=== PATIENT | female | born 1940 | race Caucasian/White ===

== ENCOUNTER 2019-01-13 10:19 | Inpatient (IN) | payer MEDICARE, BC ==
[~2019-01-13] VITALS: Ht 149.9 cm; Wt 84.9 kg
[2019-01-13] VITALS (10 sets, daily range): BP systolic 103–145; BP diastolic 58–86
--- NOTE | 2019-01-13 11:52 | EKG ---
[address] [address] Test Date: 2019-01-13 Test Time: 10:25:55 Pat Name: ANTONIO QUINTANILLA Department: Room: Gender: F [employer]ic Apprentice: KATALINA : 1940 Requested By: EDILBERTOJ Order Number: [id number] Reading MD: Wilberto Cooper Measurements Intervals [place] Rate: 157 P: [place]: QRS: 92 QRSD: 82 T: 66 QT: 288 QTc: 472 Interpretive Statements ATRIAL FIBRILLATION. RIGHTWARD AXIS Electronically Signed On 01-15-2019 9:52:59 CDT by Wilberto Cooper
[2019-01-13 12:07] LABS: ALBUMIN 3.3 g/dL (3.4-5.0); TOTAL PROTEIN 7.3 g/dL (6.4-8.2)
[2019-01-13 12:08] LABS: ALBUMIN/GLOBULIN RATIO 0.8 (1.0-1.7); CALCIUM 8.5 mg/dL (8.5-10.1); GFR 53.5; MAGNESIUM 1.8 mg/dL (1.8-2.4); POTASSIUM 4.2 mmol/L (3.5-5.1); TOTAL BILIRUBIN 1.5 mg/dL (0.2-1.0)
[2019-01-13 12:13] LABS: BASO # 0.1 x10^3/uL (0.0-0.2); BASO % 1 % (0-3); EOS % 0 % (0-3); HEMATOCRIT 43.9 % (36.0-47.0); HEMOGLOBIN 14.3 g/dL (12.0-15.5); LYMPH % 9 % (24-48); MEAN CORPUSCULAR HEMOGLOBIN 28 pg (25-35); MEAN CORPUSCULAR HGB CONC 33 g/dL (31-37); MEAN CORPUSCULAR VOLUME 85 fL (79-100); MONO # 0.8 x10^3/uL (0.0-1.1); MONO % 8 % (0-9); NEUT # 8.4 x10^3uL (1.8-7.7); NEUT % 82 % (31-73); PLATELET COUNT 172 x10^3/uL (140-400); RED BLOOD COUNT 5.15 x10^6/uL (3.50-5.40); RED CELL DISTRIBUTION WIDTH 15.1 % (11.5-14.5); WHITE BLOOD COUNT 10.3 x10^3/uL (4.0-11.0)
--- NOTE | 2019-01-13 12:40 | PHYS DOC ---
Adult General Chief Complaint Chief Complaint: RAPID HEART RATE HPI HPI Patient is a 78-year-old female who presents with complaint of shortness of breath and palpitations that she states is been present for the last 2-3 weeks. She states that she has been having a little bit of chest tightness but no ac tual pain. He denies any fever. Patient states the shortness of breath is worsened with exertion. She also indicates that she has been noticing swelling in her lower legs that is worse than usual. Patient states that nothing is improving her symptoms. Review of Systems Review of Systems Constitutional: Denies fever or chills [] Respiratory: Positive coughing and shortness of breath [] Cardiovascular: No additional information not addressed in HPI [] GI: Denies abdominal pain, nausea, vomiting or diarrhea [] Integument: Denies rash or skin lesions [] Neurologic: Denies headache, focal weakness or sensory changes [] All other systems were reviewed and found to be within normal limits, except as documented in this note. Current Medications Current Medications Current Medications Medications (Trade) Dose Ordered Sig/Sarah Start Time Stop Time Status Last Admin Dose Admin Digoxin (Lanoxin) 500 mcg 1X ONCE 01/13/19 12:30 01/13/19 12:31 UNV Furosemide (Lasix) 60 mg 1X ONCE 01/13/19 12:30 01/13/19 12:31 UNV Physical Exam Physical Exam Constitutional: Well developed, well nourished, no acute distress, non-toxic appearance. [] HENT: Normocephalic, atraumatic, bilateral external ears normal, oropharynx m oist, no oral exudates, nose normal. [] Eyes: PERRLA, EOMI, conjunctiva normal, no discharge. [] Neck: Normal range of motion, no tenderness, supple, no stridor. [] Cardiovascular: Markedly tachycardic rate with irregular rhythm[] Lungs & Thorax: There are rales in the lung bases bilaterally to auscultation [] Abdomen: Bowel sounds normal, soft, no tenderness. [] Skin: Warm, dry, no erythema, no rash. [] Extremities: No tenderness, no cyanosis, no clubbing, ROM intact, with 3+ pitting edema. [] Neurologic: Alert and oriented X 3, no focal deficits noted. [] Current Patient Data Lab Results Laboratory Tests Test 01/13/19 11:50 White Blood Count 10.3 x10^3/uL (4.0-11.0) Red Blood Count 5.15 x10^6/uL (3.50-5.40) Hemoglobin 14.3 g/dL (12.0-15.5) Hematocrit 43.9 % (36.0-47.0) Mean Corpuscular Volume 85 fL (79-100) Mean Corpuscular Hemoglobin 28 pg (25-35) Mean Corpuscular Hemoglobin Concent 33 g/dL (31-37) Red Cell Distribution Width 15.1 % (11.5-14.5) H Platelet Count 172 x10^3/uL (140-400) Neutrophils (%) (Auto) 82 % (31-73) H Lymphocytes (%) (Auto) 9 % (24-48) L Monocytes (%) (Auto) 8 % (0-9) Eosinophils (%) (Auto) 0 % (0-3) Basophils (%) (Auto) 1 % (0-3) Neutrophils # (Auto) 8.4 x10^3uL (1.8-7.7) H Lymphocytes # (Auto) 1.0 x10^3/uL (1.0-4.8) Monocytes # (Auto) 0.8 x10^3/uL (0.0-1.1) Eosinophils # (Auto) 0.0 x10^3/uL (0.0-0.7) Basophils # (Auto) 0.1 x10^3/uL (0.0-0.2) Sodium Level 136 mmol/L (136-145) Potassium Level 4.2 mmol/L (3.5-5.1) Chloride Level 101 mmol/L (98-107) Carbon Dioxide Level 26 mmol/L (21-32) Anion Gap 9 (6-14) Blood Urea Nitrogen 17 mg/dL (7-20) Creatinine 1.0 mg/dL (0.6-1.0) Estimated GFR (Cockcroft-Gault) 53.5 BUN/Creatinine Ratio 17 (6-20) Glucose Level 116 mg/dL (70-99) H Calcium Level 8.5 mg/dL (8.5-10.1) Magnesium Level 1.8 mg/dL (1.8-2.4) Total Bilirubin 1.5 mg/dL (0.2-1.0) H Aspartate Amino Transferase (AST) 44 U/L (15-37) H Alanine Aminotransferase (ALT) 59 U/L (14-59) Alkaline Phosphatase 117 U/L (46-116) H Troponin I Quantitative < 0.017 ng/mL (0-0.055) JF-Zvf-K-Type Natriuretic Peptide 4017 pg/mL (0-449) H Total Protein 7.3 g/dL (6.4-8.2) Albumin 3.3 g/dL (3.4-5.0) L Albumin/Globulin Ratio 0.8 (1.0-1.7) L EKG EKG EKG demonstrates atrial fibrillation with rapid ventricular response and rate of 157.[] Radiology/Procedures Radiology/Procedures [] Impressions: Chest x-ray demonstrates fluid overload consistent with CHF. Course & Med Decision Making Course & Med Decision Making Pertinent Labs and Imaging studies reviewed. (See chart for details) [] Dragon Disclaimer Dragon Disclaimer This electronic medical record was generated, in whole or in part, using a voice recognition dictation system. Departure Departure: Impression: Primary Impression: Atrial fibrillation with RVR Additional Impression: CHF (congestive heart failure) Disposition: 09 ADMITTED INPATIENT Admitting Physician: Shad Stark Condition: IMPROVED Referrals: SHAD STARK MD (PCP) Problem Qualifiers Additional Impression: CHF (congestive heart failure) Heart failure type: unspecified Heart failure chronicity: unspecified Qualified Codes: I50.9 - Heart failure, unspecified MARCI CASTRO Jr. DO January 13, 2019 12:40
[2019-01-13] MEDS ORDERED: DIGOXIN IV 500 MCG/2 ML AMPUL. IV ONE (13:00)
[2019-01-13] MEDS ORDERED: FUROSEMIDE 40 MG/4 ML VIAL IVP ONE (13:00)
--- NOTE | 2019-01-13 13:53 | RAD ---
EXAM: CHEST 1 VIEW History: Dyspnea COMPARISON: None available. TECHNIQUE: Single portable radiograph of the chest FINDINGS: Low lung volumes and technique accentuates heart size and pulmonary vascularity. Mild cardiomegaly. There is mild prominent appearing bilateral interstitial lung markings. IMPRESSION: Mild prominent bilateral interstitial lung markings could be mild diffuse interstitial infiltrates or edema. Electronically signed by: Ariel Bustillo MD (01/13/2019 1:50 PM) [id number]
[2019-01-13] MEDS ORDERED: ACETAMINOPHEN 325 MG TABLET PO PRN (14:45)
[2019-01-13] MEDS ORDERED: ONDANSETRON PF 4 MG/2 ML VIAL. IV PRN (14:45)
[2019-01-13] MEDS ORDERED: AREDS 2 PO (14:46)
[2019-01-13] MEDS ORDERED: GUAI600T47 PO (14:46)
[2019-01-13] MEDS ORDERED: ASPI-630 PO (14:46)
[2019-01-13] MEDS ORDERED: POTASSIUM CHLORIDE 20 MEQ TABLET.ER. PO ONE (16:15)
[2019-01-13] MEDS: METOPROLOL TART IMMED RELEASE 25 MG TABLET PO SCH ×3 (16:38→23:59)
[2019-01-13] MEDS: dilTIAZem VIAL 125 MG in IV DEXTROSE 5% 100 ML IV PRN (18:34)
[2019-01-13] MEDS: RIVAROXABAN 10 MG TABLET. PO SCH (18:35)
--- NOTE | 2019-01-13 18:57 | NUR ---
PT admitted to ICU bed 5 pt is able to verbalize understanding of admission to unit. PT on cardizem gtt on arrival see down time charting. Luli DEY
[2019-01-14] VITALS (17 sets, daily range): BP systolic 93–124; BP diastolic 43–88
[2019-01-14] MEDS: dilTIAZem VIAL 125 MG in IV DEXTROSE 5% 100 ML IV PRN (03:31)
[2019-01-14] MEDS: METOPROLOL TART IMMED RELEASE 25 MG TABLET PO SCH ×4 (05:48→23:12)
[2019-01-14 06:27] LABS: BASO # 0.1 x10^3/uL (0.0-0.2); BASO % 1 % (0-3); EOS # 0.1 x10^3/uL (0.0-0.7); EOS % 2 % (0-3); HEMATOCRIT 40.4 % (36.0-47.0); HEMOGLOBIN 13.2 g/dL (12.0-15.5); LYMPH % 14 % (24-48); MEAN CORPUSCULAR HEMOGLOBIN 28 pg (25-35); MEAN CORPUSCULAR HGB CONC 33 g/dL (31-37); MEAN CORPUSCULAR VOLUME 84 fL (79-100); MONO # 0.8 x10^3/uL (0.0-1.1); MONO % 10 % (0-9); NEUT # 5.4 x10^3uL (1.8-7.7); NEUT % 74 % (31-73); PLATELET COUNT 167 x10^3/uL (140-400); RED BLOOD COUNT 4.79 x10^6/uL (3.50-5.40); RED CELL DISTRIBUTION WIDTH 14.9 % (11.5-14.5); WHITE BLOOD COUNT 7.3 x10^3/uL (4.0-11.0)
[2019-01-14 06:30] LABS: CALCIUM 8.5 mg/dL (8.5-10.1); CREATININE 0.8 mg/dL (0.6-1.0); GFR 69.2
[2019-01-14] MEDS: ASPIRIN 81 MG TAB.CHEW PO SCH (09:00)
[2019-01-14] MEDS ORDERED: guaiFENesin/PS-EPHED 600/60MG 1 TAB TAB.ER.12H PO SCH (09:00)
[2019-01-14] MEDS: FUROSEMIDE 40 MG TABLET PO SCH (10:00)
[2019-01-14] MEDS ORDERED: FUROSEMIDE 40 MG/4 ML VIAL IVP ONE (11:15)
[2019-01-14] MEDS: MULTIVITAMIN I-VITE TABLET. PO SCH ×2 (12:51→23:11)
--- NOTE | 2019-01-14 13:09 | PDOC2 ---
CONSULT Date of Admission DATE: 01/14/19 TIME: 12:59 Reason for Consult: atrial fibrillation with RVR Problem List Problems Medical Problems: (1) Atrial fibrillation with RVR Status: Acute (2) CHF (congestive heart failure) Status: Acute History of Present Illness Ms Woodward is a 78 year old female who presented to her PCP office yesterday with complaints of post nasal drip, cough with clear sputum and shortness of breath on exertion. She reports symptoms ongoing for about 1 week. EKG at PCP office revealed atrial fibrillation with RVR so she was sent to ED for eval and admission. She denies any palpitations or sense of irregular heart beat. She denies chest discomfort. She reports shortness of breath with exertion for about 1 week. She reports evening fatigue and falling asleep in the chair which has been occurring for several years. She denies any decrease in her functional capacity. She denies lightheadedness or syncope. She does report waking at night with post nasal drip causing her to cough. She also reports some increased swelling in her feet and legs in the last several weeks. She denies other symptoms. Past Medical History childhood asthma, pneumonia, uterine fibroids requiring a hysterectomy, hammer toes Past Surgical History: Breast Biopsy, Hysterectomy, Other Family History non contributory Social History non smoker, no illicit drugs, social ETOH consumption rarely Current Medications Current Medications Furosemide (Lasix) 60 mg 1X ONCE IVP Last administered on 01/13/19at 13:14; Start 01/13/19 at 13:00; Stop 01/13/19 at 13:01; Status DC Digoxin (Lanoxin) 500 mcg 1X ONCE IV Last administered on 01/13/19at 13:14; Start 01/13/19 at 13:00; Stop 01/13/19 at 13:01; Status DC Acetaminophen (Tylenol) 650 mg PRN Q6HRS PRN PO Headaches, Temp > 101.5F; Start 01/13/19 at 14:45 Ondansetron HCl (Zofran) 4 mg PRN Q8HRS PRN IV NAUSEA/VOMITING; Start 01/13/19 at 14:45 Diltiazem HCl 125 mg/Dextrose 125 ml @ 5 mls/hr CONT PRN IV SEE I/O RECORD Last administered on 01/14/19at 03:31; Start 01/13/19 at 14:45; Stop 01/14/19 at 12:22; Status DC Metoprolol Tartrate (Lopressor) 25 mg Q6HRS PO Last administered on 01/14/19at 05:48; Start 01/13/19 at 14:45 Potassium Chloride (Klor-Con) 40 meq 1X ONCE PO Last administered on 01/13/19at 16:39; Start 01/13/19 at 16:15; Stop 01/13/19 at 16:16; Status DC Rivaroxaban (Xarelto) 20 mg DAILYWSUP PO Last administered on 01/13/19at 18:35; Start 01/13/19 at 18:30 Guaifenesin (Mucinex D Er 600-60 Mg) 1 tab BID PO ; Start 01/14/19 at 09:00; Stop 01/14/19 at 09:00; Status DC Guaifenesin (Mucinex Er) 600 mg BID PO Last administered on 01/14/19at 12:51; Start 01/14/19 at 09:00 Guaifenesin (Mucinex Er) 600 mg BID PO ; Start 01/14/19 at 09:00; Status UNV Aspirin (Children'S Aspirin) 81 mg DAILYWBKFT PO ; Start 01/14/19 at 09:00 Multivitamins/ Minerals (I-Horacio) 1 tab BID PO Last administered on 01/14/19at 12:51; Start 01/14/19 at 09:00 Furosemide (Lasix) 40 mg DAILY PO ; Start 01/14/19 at 10:00 Diltiazem HCl (Cardizem 24hr Cd) 360 mg DAILY PO ; Start 01/15/19 at 09:00; Stop 01/15/19 at 09:00; Status DC Furosemide (Lasix) 40 mg 1X ONCE IVP ; Start 01/14/19 at 11:15; Stop 01/14/19 at 11:19; Status DC Diltiazem HCl (Cardizem 24hr Cd) 360 mg DAILY PO ; Start 01/14/19 at 12:30; Stop 01/14/19 at 12:38; Status DC Diltiazem HCl (Cardizem 24hr Cd) 120 mg DAILY PO ; Start 01/15/19 at 09:00; Stop 01/15/19 at 09:00; Status DC Diltiazem HCl (Cardizem 24hr Cd) 120 mg STK-MED ONCE PO ; Start 01/14/19 at 12:50; Stop 01/14/19 at 12:51; Status DC Diltiazem HCl (Cardizem 24hr Cd) 120 mg DAILY PO ; Start 01/14/19 at 13:00 Active Scripts Active Reported Mucinex (Guaifenesin) 600 Mg Tablet.er 1 Tab PO BID [Areds 2] 1 Tab PO BID Aspirin 81 Mg Tab.chew 81 Mg PO DAILY Allergies: Coded Allergies: No Known Drug Allergies (Unverified , 01/13/19) Review of System as per HPI or negative General: Alert, Oriented X3, Cooperative, No acute distress HEENT: Atraumatic, EOMI Lungs: Other (decreased bases with few crackles) Heart: Other (Irregular rate and rhythm, no gallops, clicks or rubs, no obvious murmurs) Abdomen: Normal bowel sounds, Soft, No tenderness Extremities: No cyanosis, Other (2-3+ pretibial edema) Neuro: Normal speech, Strength at / X4 ext Psych/Mental Status: Mental status NL, Mood NL VITALS Vital Signs Date Time Temp Pulse Resp B/P (MAP) Pulse Ox O2 Delivery O2 Flow Rate FiO2 01/14/19 11:06 97.7 95 24 93/43 (60) 93 Nasal Cannula 2.0 Labs Laboratory Tests Test 01/13/19 11:50 01/14/19 05:31 White Blood Count 10.3 x10^3/uL (4.0-11.0) 7.3 x10^3/uL (4.0-11.0) Red Blood Count 5.15 x10^6/uL (3.50-5.40) 4.79 x10^6/uL (3.50-5.40) Hemoglobin 14.3 g/dL (12.0-15.5) 13.2 g/dL (12.0-15.5) Hematocrit 43.9 % (36.0-47.0) 40.4 % (36.0-47.0) Mean Corpuscular Volume 85 fL (79-100) 84 fL (79-100) Mean Corpuscular Hemoglobin 28 pg (25-35) 28 pg (25-35) Mean Corpuscular Hemoglobin Concent 33 g/dL (31-37) 33 g/dL (31-37) Red Cell Distribution Width 15.1 % (11.5-14.5) 14.9 % (11.5-14.5) Platelet Count 172 x10^3/uL (140-400) 167 x10^3/uL (140-400) Neutrophils (%) (Auto) 82 % (31-73) 74 % (31-73) Lymphocytes (%) (Auto) 9 % (24-48) 14 % (24-48) Monocytes (%) (Auto) 8 % (0-9) 10 % (0-9) Eosinophils (%) (Auto) 0 % (0-3) 2 % (0-3) Basophils (%) (Auto) 1 % (0-3) 1 % (0-3) Neutrophils # (Auto) 8.4 x10^3uL (1.8-7.7) 5.4 x10^3uL (1.8-7.7) Lymphocytes # (Auto) 1.0 x10^3/uL (1.0-4.8) 1.0 x10^3/uL (1.0-4.8) Monocytes # (Auto) 0.8 x10^3/uL (0.0-1.1) 0.8 x10^3/uL (0.0-1.1) Eosinophils # (Auto) 0.0 x10^3/uL (0.0-0.7) 0.1 x10^3/uL (0.0-0.7) Basophils # (Auto) 0.1 x10^3/uL (0.0-0.2) 0.1 x10^3/uL (0.0-0.2) Sodium Level 136 mmol/L (136-145) 138 mmol/L (136-145) Potassium Level 4.2 mmol/L (3.5-5.1) 5.0 mmol/L (3.5-5.1) Chloride Level 101 mmol/L (98-107) 103 mmol/L (98-107) Carbon Dioxide Level 26 mmol/L (21-32) 26 mmol/L (21-32) Anion Gap 9 (6-14) 9 (6-14) Blood Urea Nitrogen 17 mg/dL (7-20) 13 mg/dL (7-20) Creatinine 1.0 mg/dL (0.6-1.0) 0.8 mg/dL (0.6-1.0) Estimated GFR (Cockcroft-Gault) 53.5 69.2 BUN/Creatinine Ratio 17 (6-20) Glucose Level 116 mg/dL (70-99) 94 mg/dL (70-99) Calcium Level 8.5 mg/dL (8.5-10.1) 8.5 mg/dL (8.5-10.1) Magnesium Level 1.8 mg/dL (1.8-2.4) 1.9 mg/dL (1.8-2.4) Total Bilirubin 1.5 mg/dL (0.2-1.0) Aspartate Amino Transf (AST/SGOT) 44 U/L (15-37) Alanine Aminotransferase (ALT/SGPT) 59 U/L (14-59) Alkaline Phosphatase 117 U/L (46-116) Troponin I Quantitative < 0.017 ng/mL (0-0.055) EW-Wef-L-Type Natriuretic Peptide 4017 pg/mL (0-449) Total Protein 7.3 g/dL (6.4-8.2) Albumin 3.3 g/dL (3.4-5.0) Albumin/Globulin Ratio 0.8 (1.0-1.7) Images CXR - IMPRESSION: Mild prominent bilateral interstitial lung markings could be mild diffuse interstitial infiltrates or edema. Assessment/Plan 1. atrial fibrillation with RVR - rate control improved on 15mg cardizem drip, q6hr metoprolol and after 500mcg digoxin. Plan to transition to oral cardizem. On Xarelto for stroke prophylaxis. [id number]=3. check echo. plan for outpatient MCT for af burden and 4 week follow up in office. 2. mild, likely diastolic, heart failure - control af rate, diurese gently. check echo. 3. history of hyperkalemia - mildly elevated today. no supplements. avoid acei/arb. JERSON ROCK APRN January 14, 2019 13:09
--- NOTE | 2019-01-14 14:25 | CARD ---
MR#: [id number] Date of Study: 01/14/2019 Ordering Physician: CANDIDA GUZMAN, Referring Physician: CANDIDA GUZMAN, Tech: Denisha Llamas RDCS APPROVED REPORT EXAM: Two-dimensional and M-mode echocardiogram with Doppler and color Doppler. Other Information Quality : AverageHR: 112bpm Rhythm : Atrial FibrillationTechnically limited study due to heart rate. INDICATION Atrial Fibrillation 2D DIMENSIONS RVDd4.0 (2.9-3.5cm)Left Atrium(2D)4.1 (1.6-4.0cm) IVSd1.1 (0.7-1.1cm)Aortic Root(2D)3.3 (2.0-3.7cm) LVDd4.0 (3.9-5.9cm)LVOT Diameter1.7 (1.8-2.4cm) PWd0.9 (0.7-1.1cm)LVDs2.9 (2.5-4.0cm) FS (%) 26.6 %SV36.3 ml LVEF(%)52.7 (>50%) M-Mode DIMENSIONS Left Atrium(MM)4.05 (2.5-4.0cm)Aortic Root2.47 (2.2-3.7cm) Aortic Valve AoV Peak Júnior.161.0cm/sAoV VTI29.5cm AO Peak GR.10.4mmHgLVOT Peak Júnior.85.0cm/s LVOT VTI 17.74cmAO Mean GR.6mmHg MARJORIE (VTI)2.00cm2 Mitral Valve MV E Awprenlb275.9cm/sMV DECEL [id number] MV A Yculaycr53.2cm/sE/A Ratio4.2 Pulmonary Valve PV Peak Xibkhqtn83.9cm/sPV Peak Grad.2mmHg Tricuspid Valve TR P. Knycdbkj663jb/sRAP EULMXEZS57ctVp TR Peak Gr.40siBePSQC38fzCz LEFT VENTRICLE The left ventricle is normal size. Proximal septal thickening is noted. Left ventricle systolic funct ion is normal. The Ejection Fraction is 50-55%. There is normal LV segmental wall motion. RIGHT VENTRICLE The right ventricle is mildly dilated. There is normal right ventricular wall thickness. The right ve ntricular systolic function is normal. ATRIA The left atrium is mildly dilated. The right atrium is mildly dilated. The interatrial septum is inta ct with no evidence for an atrial septal defect or patent foramen ovale as noted on 2-D or Doppler im aging. AORTIC VALVE The aortic valve is normal in structure and function. The aortic valve is trileaflet. Doppler and Col or Flow revealed no significant aortic regurgitation. There is no significant aortic valvular stenosi s. There is no aortic valvular vegetation. MITRAL VALVE The mitral valve is thickened but opens well. There is no evidence of mitral valve prolapse. There is no mitral valve stenosis. Doppler and Color-flow revealed moderate mitral regurgitation. TRICUSPID VALVE The tricuspid valve is normal in structure and function. Doppler and Color Flow revealed moderate tri cuspid regurgitation. There is moderate pulmonary hypertension. The PA pressure was estimated at 49 m mHg. There is no tricuspid valve prolapse or vegetation. There is no tricuspid valve stenosis. PULMONIC VALVE The pulmonic valve is not well visualized. GREAT VESSELS The aortic root is normal in size. The ascending aorta is normal in size. The IVC is dilated. PERICARDIAL EFFUSION There is no evidence of significant pericardial effusion. Critical Notification Critical Value: No <Conclusion> Left ventricle systolic function is normal. The Ejection Fraction is 50-55%. Moderate mitral regurgitation. Moderate tricuspid regurgitation. The PA pressure was estimated at 49 mmHg. There is no evidence of significant pericardial effusion. Signed by : Adelso Cordova, Electronically Approved : 01/14/2019 14:24:37
[2019-01-14] MEDS: RIVAROXABAN 10 MG TABLET. PO SCH (16:54)
--- NOTE | 2019-01-14 18:30 | NUR ---
Pt was still on 15mg of cardizem gtt this am and had been on 15mg all night. PT bp was hypotensive in 90s and unable to tolerate am meds. Cardiology wanted patient to have po cardizem 360 and IV lasix. Titrated gtt back to 5mg and bp was up to 100's, cardiology decided to go with 120mg of po cardizem. Turned gtt off 1 hour after po cardizem given. By afternoon patient bp was able to tolerate IV lasix. PT only had 400cc out from 6am- 2pm prior to IV lasix. By 1700 patient was also able to tolerate po metoprolol dose. PT HR now controlled at 80's and Bp 116/54. Pt feeling ok, still SOB with exertion. Luli DEY
[2019-01-15] VITALS (14 sets, daily range): BP systolic 103–138; BP diastolic 61–95
--- NOTE | 2019-01-15 02:36 | PN ---
DATE: 01/13/2019 SUBJECTIVE: The patient was admitted yesterday for atrial fibrillation with rapid ventricular response. Cardiology is adjusting her medications. She feels fine this morning and no complications. No chest pain, no shortness of breath. OBJECTIVE: VITAL SIGNS: The patient's blood pressure 102/60; respiratory rate 16; pulse 80-90, in atrial fib, the patient has got converted; afebrile. GENERAL: The patient is alert and oriented, pleasant female in no apparent distress. LUNGS: Diminished with rales noted in the bases. CARDIOVASCULAR: Regular rate and rhythm. ABDOMEN: Soft, nontender. EXTREMITIES: With +1 to 2 pitting edema. The patient's BNP was 4000. Questions were answered and the patient will continue to be diuresed gradually and monitoring her blood pressure along with her beta blockers to control her heart rate. Echocardiogram ordered as well as lipid profiles and we will continue to monitor the patient. She continues on a Cardizem drip to keep the heart rate under control and we will monitor accordingly. IMPRESSION: Therefore of atrial fibrillation with rapid ventricular response, acute on top of chronic diastolic heart failure. PLAN: Continue with diuresis and control of rate on the atrial fibrillation, get echo report. CANDIDA GUZMAN MD DR: NIA/altagracia JOB#: [id number] / [id number]
[2019-01-15] MEDS: METOPROLOL TART IMMED RELEASE 25 MG TABLET PO SCH (05:33)
[2019-01-15 06:19] LABS: BASO % 1 % (0-3); EOS # 0.2 x10^3/uL (0.0-0.7); EOS % 3 % (0-3); HEMATOCRIT 41.9 % (36.0-47.0); HEMOGLOBIN 13.7 g/dL (12.0-15.5); LYMPH # 1.2 x10^3/uL (1.0-4.8); LYMPH % 17 % (24-48); MEAN CORPUSCULAR HEMOGLOBIN 28 pg (25-35); MEAN CORPUSCULAR HGB CONC 33 g/dL (31-37); MEAN CORPUSCULAR VOLUME 85 fL (79-100); MONO # 0.7 x10^3/uL (0.0-1.1); MONO % 9 % (0-9); NEUT % 70 % (31-73); PLATELET COUNT 171 x10^3/uL (140-400); RED BLOOD COUNT 4.96 x10^6/uL (3.50-5.40); RED CELL DISTRIBUTION WIDTH 14.8 % (11.5-14.5); WHITE BLOOD COUNT 7.2 x10^3/uL (4.0-11.0)
[2019-01-15 06:33] LABS: ALBUMIN 2.8 g/dL (3.4-5.0); ALBUMIN/GLOBULIN RATIO 0.8 (1.0-1.7); CALCIUM 8.5 mg/dL (8.5-10.1); CREATININE 0.8 mg/dL (0.6-1.0); GFR 69.2; POTASSIUM 4.5 mmol/L (3.5-5.1); TOTAL BILIRUBIN 1.1 mg/dL (0.2-1.0); TOTAL PROTEIN 6.5 g/dL (6.4-8.2)
[2019-01-15] MEDS: FUROSEMIDE 40 MG TABLET PO SCH (07:48)
[2019-01-15] MEDS: ASPIRIN 81 MG TAB.CHEW PO SCH (07:48)
[2019-01-15] MEDS: MULTIVITAMIN I-VITE TABLET. PO SCH ×2 (07:48→20:53)
--- NOTE | 2019-01-15 08:28 | PDOC ---
PROGRESS NOTES Diagnosis Problem Problems Medical Problems: (1) Atrial fibrillation with RVR Status: Acute (2) Atrial fibrillation with RVR Status: Acute (3) CHF (congestive heart failure) Status: Acute Assessment Problems Medical Problems: (1) Atrial fibrillation with RVR Status: Acute (2) Atrial fibrillation with RVR Status: Acute (3) CHF (congestive heart failure) Status: Acute 1. atrial fibrillation with RVR - rate control improved but remains mildly elevated. Continue cardizem, metoprolol and repeat digoxin x 1 dose. Yoana [id number] =4. Xarelto for stroke prophylaxis. MCT outpatient for AF burden and eval of rate control. 2. mild, diastolic, heart failure - good diuresis with IV lasix. change to oral pending CXR report today. Continue beta yemi. No ACEI/ARB secondary to history of hyperkalemia and borderline hypotension. 3. history of hyperkalemia - WNL today. no supplements. avoid acei/arb. 4. moderate MR/TR - continue bp control and af rate control 5. mild PHTN - recommend outpatient sleep study, refer to Dr Figueredo. 6. mild hepatic insufficiency - likely congestive, improved today. Subjective still has some mild shortness of breath. continued edema. no chest pain, no palpitations Objective Vital Signs Date Time Temp Pulse Resp B/P (MAP) Pulse Ox O2 Delivery O2 Flow Rate FiO2 01/15/19 07:54 Room Air 2.0 01/15/19 07:48 93 119/95 01/15/19 07:42 97.4 20 92 Intake and Output 01/15/19 07:00 Intake Total 1820 ml Output Total 4000 ml Balance -2180 ml Intake Oral 1720 ml IV Total 100 ml Output Urine Total 4000 ml Abdomen: Normal bowel sounds, Soft, No tenderness Heart: Other (RRR, no gallops, clicks or rubs) Extremities: No cyanosis, Other (+ edema) HEENT: Atraumatic, EOMI, Mucous membr. moist/pink Lungs: Other (few left basilar crackles, otherwise clear) Neuro: Normal speech, Strength at / X4 ext Psych/Mental Status: Mental status NL, Mood NL Review of Relevant I have reviewed the following items edelmira (where applicable) has been applied. Labs Laboratory Tests Test 01/13/19 11:50 01/13/19 15:55 01/14/19 05:31 01/15/19 05:37 White Blood Count 10.3 x10^3/uL (4.0-11.0) 7.3 x10^3/uL (4.0-11.0) 7.2 x10^3/uL (4.0-11.0) Red Blood Count 5.15 x10^6/uL (3.50-5.40) 4.79 x10^6/uL (3.50-5.40) 4.96 x10^6/uL (3.50-5.40) Hemoglobin 14.3 g/dL (12.0-15.5) 13.2 g/dL (12.0-15.5) 13.7 g/dL (12.0-15.5) Hematocrit 43.9 % (36.0-47.0) 40.4 % (36.0-47.0) 41.9 % (36.0-47.0) Mean Corpuscular Volume 85 fL (79-100) 84 fL (79-100) 85 fL (79-100) Mean Corpuscular Hemoglobin 28 pg (25-35) 28 pg (25-35) 28 pg (25-35) Mean Corpuscular Hemoglobin Concent 33 g/dL (31-37) 33 g/dL (31-37) 33 g/dL (31-37) Red Cell Distribution Width 15.1 % (11.5-14.5) 14.9 % (11.5-14.5) 14.8 % (11.5-14.5) Platelet Count 172 x10^3/uL (140-400) 167 x10^3/uL (140-400) 171 x10^3/uL (140-400) Neutrophils (%) (Auto) 82 % (31-73) 74 % (31-73) 70 % (31-73) Lymphocytes (%) (Auto) 9 % (24-48) 14 % (24-48) 17 % (24-48) Monocytes (%) (Auto) 8 % (0-9) 10 % (0-9) 9 % (0-9) Eosinophils (%) (Auto) 0 % (0-3) 2 % (0-3) 3 % (0-3) Basophils (%) (Auto) 1 % (0-3) 1 % (0-3) 1 % (0-3) Neutrophils # (Auto) 8.4 x10^3uL (1.8-7.7) 5.4 x10^3uL (1.8-7.7) 5.0 x10^3uL (1.8-7.7) Lymphocytes # (Auto) 1.0 x10^3/uL (1.0-4.8) 1.0 x10^3/uL (1.0-4.8) 1.2 x10^3/uL (1.0-4.8) Monocytes # (Auto) 0.8 x10^3/uL (0.0-1.1) 0.8 x10^3/uL (0.0-1.1) 0.7 x10^3/uL (0.0-1.1) Eosinophils # (Auto) 0.0 x10^3/uL (0.0-0.7) 0.1 x10^3/uL (0.0-0.7) 0.2 x10^3/uL (0.0-0.7) Basophils # (Auto) 0.1 x10^3/uL (0.0-0.2) 0.1 x10^3/uL (0.0-0.2) 0.0 x10^3/uL (0.0-0.2) Sodium Level 136 mmol/L (136-145) 138 mmol/L (136-145) 140 mmol/L (136-145) Potassium Level 4.2 mmol/L (3.5-5.1) 5.0 mmol/L (3.5-5.1) 4.5 mmol/L (3.5-5.1) Chloride Level 101 mmol/L (98-107) 103 mmol/L (98-107) 104 mmol/L (98-107) Carbon Dioxide Level 26 mmol/L (21-32) 26 mmol/L (21-32) 30 mmol/L (21-32) Anion Gap 9 (6-14) 9 (6-14) 6 (6-14) Blood Urea Nitrogen 17 mg/dL (7-20) 13 mg/dL (7-20) 12 mg/dL (7-20) Creatinine 1.0 mg/dL (0.6-1.0) 0.8 mg/dL (0.6-1.0) 0.8 mg/dL (0.6-1.0) Estimated GFR (Cockcroft-Gault) 53.5 69.2 69.2 BUN/Creatinine Ratio 17 (6-20) 15 (6-20) Glucose Level 116 mg/dL (70-99) 94 mg/dL (70-99) 95 mg/dL (70-99) Calcium Level 8.5 mg/dL (8.5-10.1) 8.5 mg/dL (8.5-10.1) 8.5 mg/dL (8.5-10.1) Magnesium Level 1.8 mg/dL (1.8-2.4) 1.9 mg/dL (1.8-2.4) 2.0 mg/dL (1.8-2.4) Total Bilirubin 1.5 mg/dL (0.2-1.0) 1.1 mg/dL (0.2-1.0) Aspartate Amino Transf (AST/SGOT) 44 U/L (15-37) 34 U/L (15-37) Alanine Aminotransferase (ALT/SGPT) 59 U/L (14-59) 52 U/L (14-59) Alkaline Phosphatase 117 U/L (46-116) 97 U/L (46-116) Troponin I Quantitative < 0.017 ng/mL (0-0.055) ZC-Krp-D-Type Natriuretic Peptide 4017 pg/mL (0-449) Total Protein 7.3 g/dL (6.4-8.2) 6.5 g/dL (6.4-8.2) Albumin 3.3 g/dL (3.4-5.0) 2.8 g/dL (3.4-5.0) Albumin/Globulin Ratio 0.8 (1.0-1.7) 0.8 (1.0-1.7) Nasal Screen MRSA (PCR) Negative (Negative) Medications Current Medications Furosemide (Lasix) 60 mg 1X ONCE IVP Last administered on 01/13/19at 13:14; Start 01/13/19 at 13:00; Stop 01/13/19 at 13:01; Status DC Digoxin (Lanoxin) 500 mcg 1X ONCE IV Last administered on 01/13/19at 13:14; Start 01/13/19 at 13:00; Stop 01/13/19 at 13:01; Status DC Acetaminophen (Tylenol) 650 mg PRN Q6HRS PRN PO Headaches, Temp > 101.5F; Start 01/13/19 at 14:45 Ondansetron HCl (Zofran) 4 mg PRN Q8HRS PRN IV NAUSEA/VOMITING; Start 01/13/19 at 14:45 Diltiazem HCl 125 mg/Dextrose 125 ml @ 5 mls/hr CONT PRN IV SEE I/O RECORD Last administered on 01/14/19at 03:31; Start 01/13/19 at 14:45; Stop 01/14/19 at 12:22; Status DC Metoprolol Tartrate (Lopressor) 25 mg Q6HRS PO Last administered on 01/15/19at 05:33; Start 01/13/19 at 14:45; Stop 01/15/19 at 08:20; Status DC Potassium Chloride (Klor-Con) 40 meq 1X ONCE PO Last administered on 01/13/19at 16:39; Start 01/13/19 at 16:15; Stop 01/13/19 at 16:16; Status DC Rivaroxaban (Xarelto) 20 mg DAILYWSUP PO Last administered on 01/14/19at 16:54; Start 01/13/19 at 18:30 Guaifenesin (Mucinex D Er 600-60 Mg) 1 tab BID PO ; Start 01/14/19 at 09:00; Stop 01/14/19 at 09:00; Status DC Guaifenesin (Mucinex Er) 600 mg BID PO Last administered on 01/15/19at 07:48; Start 01/14/19 at 09:00 Guaifenesin (Mucinex Er) 600 mg BID PO ; Start 01/14/19 at 09:00; Status UNV Aspirin (Children'S Aspirin) 81 mg DAILYWBKFT PO Last administered on 01/15/19at 07:48; Start 01/14/19 at 09:00 Multivitamins/ Minerals (I-Horacio) 1 tab BID PO Last administered on 01/15/19at 07:48; Start 01/14/19 at 09:00 Furosemide (Lasix) 40 mg DAILY PO Last administered on 01/15/19at 07:48; Start 01/14/19 at 10:00 Diltiazem HCl (Cardizem 24hr Cd) 360 mg DAILY PO ; Start 01/15/19 at 09:00; Stop 01/15/19 at 09:00; Status DC Furosemide (Lasix) 40 mg 1X ONCE IVP Last administered on 01/14/19at 14:08; Start 01/14/19 at 11:15; Stop 01/14/19 at 11:19; Status DC Diltiazem HCl (Cardizem 24hr Cd) 360 mg DAILY PO ; Start 01/14/19 at 12:30; Stop 01/14/19 at 12:38; Status DC Diltiazem HCl (Cardizem 24hr Cd) 120 mg DAILY PO ; Start 01/15/19 at 09:00; Stop 01/15/19 at 09:00; Status DC Diltiazem HCl (Cardizem 24hr Cd) 120 mg STK-MED ONCE PO ; Start 01/14/19 at 12:50; Stop 01/14/19 at 12:51; Status DC Diltiazem HCl (Cardizem 24hr Cd) 120 mg DAILY PO Last administered on 01/15/19at 07:48; Start 01/14/19 at 13:00; Stop 01/15/19 at 08:20; Status DC Diltiazem HCl (Cardizem 24hr Cd) 240 mg DAILY PO ; Start 01/15/19 at 09:00 Diltiazem HCl (Cardizem 24hr Cd) 120 mg 1X ONCE PO ; Start 01/15/19 at 08:30; Stop 01/15/19 at 08:31 Metoprolol Succinate (Toprol Xl) 100 mg DAILY PO ; Start 01/15/19 at 09:00 Digoxin (Lanoxin) 250 mcg 1X ONCE IV ; Start 01/15/19 at 08:30; Stop 01/15/19 at 08:31; Status UNV Active Scripts Active Reported Mucinex (Guaifenesin) 600 Mg Tablet.er 1 Tab PO BID [Areds 2] 1 Tab PO BID Aspirin 81 Mg Tab.chew 81 Mg PO DAILY Vitals/I & O Vital Sign - Last 24 Hours 01/14/19 01/14/19 01/14/192/19 11:00 11:06 13:42 15:08 Temp 97.7 Pulse 95 94 106 Resp 24 B/P (MAP) 93/43 (60) 101/64 (76) Pulse Ox 93 O2 Delivery Nasal Cannula Nasal Cannula O2 Flow Rate 2.0 2.0 01/14/19 01/14/19 01/14/19 01/14/19 16:00 16:05 16:54 17:20 Temp 97.6 Pulse 108 80 114 Resp 22 23 B/P (MAP) 120/71 (87) 124/73 (90) O2 Delivery Nasal Cannula O2 Flow Rate 2.0 01/14/19 01/14/19 01/14/19 01/14/19 18:00 18:15 19:14 19:16 Temp 97.9 98.2 Pulse 80 105 92 Resp 20 18 B/P (MAP) 116/54 (74) 107/59 (75) Pulse Ox 93 94 O2 Delivery Room Air Room Air Room Air O2 Flow Rate 3.0 01/14/19 01/14/19 01/14/19 01/14/19 20:39 21:25 22:13 23:12 Pulse 105 93 97 97 Resp 18 18 18 B/P (MAP) 106/62 (77) 98/67 (77) 110/88 (95) 110/88 Pulse Ox 92 92 94 O2 Delivery Room Air Room Air Room Air 01/14/19 01/14/19 01/15/19 01/15/19 23:13 23:44 00:18 01:36 Temp 97.5 Pulse 103 79 96 Resp 18 18 18 B/P (MAP) 113/73 (86) 116/70 (85) 117/91 (100) Pulse Ox 90 95 95 O2 Delivery Room Air Nasal Cannula Nasal Cannula Nasal Cannula O2 Flow Rate 2.0 2.0 2.0 01/15/19 01/15/19 01/15/19 01/15/19 02:22 03:17 03:44 04:08 Pulse 90 105 79 Resp 18 20 20 B/P (MAP) 138/83 (101) Pulse Ox 96 94 94 O2 Delivery Nasal Cannula Nasal Cannula Nasal Cannula Nasal Cannula O2 Flow Rate 2.0 2.0 2.0 2.0 01/15/19 01/15/19 01/15/19 01/15/19 05:04 05:29 05:33 06:19 Temp 97.4 Pulse 96 112 112 84 Resp 20 20 20 B/P (MAP) 116/89 (98) 116/89 108/80 (89) Pulse Ox 93 95 96 O2 Delivery Nasal Cannula Nasal Cannula Nasal Cannula O2 Flow Rate 2.0 2.0 2.0 01/15/19 01/15/19 01/15/19 07:42 07:48 07:54 Temp 97.4 Pulse 93 93 Resp 20 B/P (MAP) 119/95 (103) 119/95 Pulse Ox 92 O2 Delivery Room Air Room Air O2 Flow Rate 2.0 Intake and Output 01/14/19 01/14/19 01/15/19 15:00 23:00 07:00 Intake Total 1380 ml 340 ml 100 ml Output Total 400 ml 2800 ml 800 ml Balance 980 ml -2460 ml -700 ml JERSON ROCK APRN January 15, 2019 08:28
[2019-01-15] MEDS ORDERED: DIGOXIN IV 500 MCG/2 ML AMPUL. IV ONE (08:30)
[2019-01-15] MEDS: METOPROLOL SUCC 24HR ER 50 MG TAB.ER.24H. PO SCH (08:30)
[2019-01-15] MEDS ORDERED: CETIRIZINE HCL 10 MG TABLET PO SCH (09:00)
--- NOTE | 2019-01-15 09:28 | RAD ---
Chest, 2 views, 01/15/2019: HISTORY: Shortness of breath, congestive heart failure Comparison is made to a study from 01/13/2019. The heart is mildly enlarged. There is a retrocardiac mass containing gas compatible with a small to moderate-sized hiatal hernia. The upper lung langley are clear. There are streaky bibasilar pulmonary opacities. There is blunting of the costophrenic angles bilaterally compatible with a small amount of pleural fluid. Moderate multilevel degenerative changes are present in the spine with accentuation of the normal thoracic kyphosis. IMPRESSION: 1. Mild cardiomegaly. 2. Mild streaky bibasilar atelectasis/infiltrate with small pleural effusions. 3. Hiatal hernia. Electronically signed by: Bebeto Osborne MD (01/15/2019 9:25 AM) [facility]
--- NOTE | 2019-01-15 10:00 | NUR ---
Cardiology here at this time, adjusted cardiac medications. Vitals remain stable except HR uncontrolled. Patients only complaints are tickling in throat and congestion. HR medications given and zytrec given this AM. Will continue to monitor HR and BP.
--- NOTE | 2019-01-15 14:22 | NUR ---
Patient downgraded to telemetry status, plan is to move patient to Room 113. Patient aware of transfer.
[2019-01-15] MEDS: RIVAROXABAN 10 MG TABLET. PO SCH (17:31)
--- NOTE | 2019-01-16 02:35 | PN ---
DATE: 01/13/2019 SUBJECTIVE: A 78-year-old female came in with atrial fibrillation with rapid ventricular response. She is making good progress. She has been digitalized, making fairly good progress overall. The patient's albumin is 2.8. PHYSICAL EXAMINATION: VITAL SIGNS: Otherwise, the patient's vital signs remain basically stable. Blood pressure 110/70, respirations 18, pulse 90, afebrile. GENERAL: The patient is alert and oriented, delightful female. LUNGS: Diminished, but clear. CARDIOVASCULAR: Irregularly irregular rhythm. ABDOMEN: Soft, nontender. EXTREMITIES: No clubbing, cyanosis nor edema. The patient continued to be monitored and adjusted on her medications for the atrial fib. There was some confusion whether or not she had an infiltrative process. We will do a procalcitonin to see if there is any chance or risk of infectious etiology. IMPRESSION: Therefore of atrial fibrillation with rapid ventricular response, acute diastolic heart failure, history of hyperkalemia, moderate mitral regurgitation, mild pulmonary hypertension, mild hepatic insufficiency. PLAN: Continue with Cardiology consult. Make further evaluation on her as indicated. CANDIDA GUZMAN MD DR: NIA/altagracia JOB#: [id number] / [id number]
[2019-01-16 06:27] VITALS: BP 119/63
[2019-01-16 07:51] LABS: BASO # 0.1 x10^3/uL (0.0-0.2); BASO % 1 % (0-3); EOS # 0.2 x10^3/uL (0.0-0.7); EOS % 4 % (0-3); HEMATOCRIT 41.4 % (36.0-47.0); HEMOGLOBIN 13.5 g/dL (12.0-15.5); LYMPH # 1.3 x10^3/uL (1.0-4.8); LYMPH % 20 % (24-48); MEAN CORPUSCULAR HEMOGLOBIN 28 pg (25-35); MEAN CORPUSCULAR HGB CONC 33 g/dL (31-37); MEAN CORPUSCULAR VOLUME 84 fL (79-100); MONO # 0.6 x10^3/uL (0.0-1.1); MONO % 9 % (0-9); NEUT # 4.2 x10^3uL (1.8-7.7); NEUT % 66 % (31-73); PLATELET COUNT 182 x10^3/uL (140-400); RED BLOOD COUNT 4.91 x10^6/uL (3.50-5.40); RED CELL DISTRIBUTION WIDTH 14.6 % (11.5-14.5); WHITE BLOOD COUNT 6.4 x10^3/uL (4.0-11.0)
[2019-01-16 08:02] LABS: ALBUMIN 2.6 g/dL (3.4-5.0); ALBUMIN/GLOBULIN RATIO 0.7 (1.0-1.7); CALCIUM 8.4 mg/dL (8.5-10.1); CREATININE 0.8 mg/dL (0.6-1.0); GFR 69.2; MAGNESIUM 1.8 mg/dL (1.8-2.4); POTASSIUM 5.1 mmol/L (3.5-5.1); TOTAL BILIRUBIN 0.9 mg/dL (0.2-1.0); TOTAL PROTEIN 6.1 g/dL (6.4-8.2)
[2019-01-16] MEDS ORDERED: SODIUM CHL/ALOE VERA NASAL GEL 14.1GM TUBE. NS PRN (08:45)
[2019-01-16] MEDS: FUROSEMIDE 40 MG TABLET PO SCH (08:48)
[2019-01-16] MEDS: MULTIVITAMIN I-VITE TABLET. PO SCH ×2 (08:48→19:49)
[2019-01-16] MEDS: METOPROLOL SUCC 24HR ER 50 MG TAB.ER.24H. PO SCH (08:48)
[2019-01-16] MEDS: ASPIRIN 81 MG TAB.CHEW PO SCH ×2 (08:49→08:54)
[2019-01-16] MEDS: FLUTICASONE 50MCG/NASAL SPRAY 16GM BOTTLE. NS SCH (09:00)
[2019-01-16] MEDS: CETIRIZINE HCL 10 MG TABLET PO SCH (09:00)
[2019-01-16 10:44] VITALS: BP 116/66
[2019-01-16 15:16] VITALS: BP 105/68
--- NOTE | 2019-01-16 15:55 | PDOC ---
SUBJECTIVE: Patient seen and examined The patient looks and feels better today. She has been walking in the [place]. OBJECTIVE: Problems: Problems Medical Problems: (1) Atrial fibrillation with RVR Status: Acute (2) Atrial fibrillation with RVR Status: Acute (3) CHF (congestive heart failure) Status: Acute Vital Signs: Vital Signs Date Time Temp Pulse Resp B/P (MAP) Pulse Ox O2 Delivery O2 Flow Rate FiO2 01/16/19 15:16 98.0 73 20 105/68 (80) 94 Room Air 01/16/19 07:22 2.0 I & O Intake and Output 01/16/19 07:00 Intake Total 2080 ml Output Total 2300 ml Balance -220 ml Intake Oral 2080 ml Output Urine Total 2300 ml Labs: Laboratory Tests Test 01/15/19 05:37 01/15/19 19:00 01/16/19 07:35 White Blood Count 7.2 x10^3/uL (4.0-11.0) 6.4 x10^3/uL (4.0-11.0) Red Blood Count 4.96 x10^6/uL (3.50-5.40) 4.91 x10^6/uL (3.50-5.40) Hemoglobin 13.7 g/dL (12.0-15.5) 13.5 g/dL (12.0-15.5) Hematocrit 41.9 % (36.0-47.0) 41.4 % (36.0-47.0) Mean Corpuscular Volume 85 fL (79-100) 84 fL (79-100) Mean Corpuscular Hemoglobin 28 pg (25-35) 28 pg (25-35) Mean Corpuscular Hemoglobin Concent 33 g/dL (31-37) 33 g/dL (31-37) Red Cell Distribution Width 14.8 % (11.5-14.5) 14.6 % (11.5-14.5) Platelet Count 171 x10^3/uL (140-400) 182 x10^3/uL (140-400) Neutrophils (%) (Auto) 70 % (31-73) 66 % (31-73) Lymphocytes (%) (Auto) 17 % (24-48) 20 % (24-48) Monocytes (%) (Auto) 9 % (0-9) 9 % (0-9) Eosinophils (%) (Auto) 3 % (0-3) 4 % (0-3) Basophils (%) (Auto) 1 % (0-3) 1 % (0-3) Neutrophils # (Auto) 5.0 x10^3uL (1.8-7.7) 4.2 x10^3uL (1.8-7.7) Lymphocytes # (Auto) 1.2 x10^3/uL (1.0-4.8) 1.3 x10^3/uL (1.0-4.8) Monocytes # (Auto) 0.7 x10^3/uL (0.0-1.1) 0.6 x10^3/uL (0.0-1.1) Eosinophils # (Auto) 0.2 x10^3/uL (0.0-0.7) 0.2 x10^3/uL (0.0-0.7) Basophils # (Auto) 0.0 x10^3/uL (0.0-0.2) 0.1 x10^3/uL (0.0-0.2) Sodium Level 140 mmol/L (136-145) 141 mmol/L (136-145) Potassium Level 4.5 mmol/L (3.5-5.1) 5.1 mmol/L (3.5-5.1) Chloride Level 104 mmol/L (98-107) 105 mmol/L (98-107) Carbon Dioxide Level 30 mmol/L (21-32) 31 mmol/L (21-32) Anion Gap 6 (6-14) 5 (6-14) Blood Urea Nitrogen 12 mg/dL (7-20) 10 mg/dL (7-20) Creatinine 0.8 mg/dL (0.6-1.0) 0.8 mg/dL (0.6-1.0) Estimated GFR (Cockcroft-Gault) 69.2 69.2 BUN/Creatinine Ratio 15 (6-20) 13 (6-20) Glucose Level 95 mg/dL (70-99) 89 mg/dL (70-99) Calcium Level 8.5 mg/dL (8.5-10.1) 8.4 mg/dL (8.5-10.1) Magnesium Level 2.0 mg/dL (1.8-2.4) 1.8 mg/dL (1.8-2.4) Total Bilirubin 1.1 mg/dL (0.2-1.0) 0.9 mg/dL (0.2-1.0) Aspartate Amino Transf (AST/SGOT) 34 U/L (15-37) 25 U/L (15-37) Alanine Aminotransferase (ALT/SGPT) 52 U/L (14-59) 41 U/L (14-59) Alkaline Phosphatase 97 U/L (46-116) 90 U/L (46-116) Total Protein 6.5 g/dL (6.4-8.2) 6.1 g/dL (6.4-8.2) Albumin 2.8 g/dL (3.4-5.0) 2.6 g/dL (3.4-5.0) Albumin/Globulin Ratio 0.8 (1.0-1.7) 0.7 (1.0-1.7) Procalcitonin < 0.10 ng/mL (0.00-0.10) Physical Exam: The patient is alert and oriented. Chest is clear to auscultation percussion. CV is irregularly irregular with a rate of 80 Abdomen is soft without masses or tenderness ASSESSMENT: 1. atrial fibrillation with RVR - the patient's rate is under very good control. Will continue on present medical treatment. Xarelto for anticoagulation. Outpatient follow-up and probably outpatient monitoring temp monitor atrial fibrillation burden and rate. 2. mild, diastolic, heart failure - resolved. Continuing present treatment. 3. history of hyperkalemia - avoid acei/arb. 4. moderate MR/TR - continue bp control and af rate control 5. mild PHTN - recommend outpatient sleep study, refer to Dr Figueredo. 6. mild hepatic insufficiency - likely congestive, improved today. REESE ROBERTS MD January 16, 2019 15:55
[2019-01-16] MEDS: RIVAROXABAN 10 MG TABLET. PO SCH (16:51)
[2019-01-16 18:35] VITALS: BP 109/78
--- NOTE | 2019-01-16 21:18 | NUR ---
Went over plan of care with patient, patient voiced understanding. No complaints at this time. Will continue to monitor.
--- NOTE | 2019-01-16 21:44 | PN ---
DATE: 01/13/2019 The patient has atrial fibrillation with rapid ventricular response. The patient is resting fairly comfortably, making fairly good progress overall. Albumin still low at 2.6. Otherwise, electrolytes are basically stable. She is feeling some better; however, she is still having some lightheadedness and heart rate does bounce up into the low 100s. The patient is still very weak on her legs, trying to get PT, OT to work with her. PHYSICAL EXAMINATION: VITAL SIGNS: Blood pressure 105/70, respiratory rate 20, pulse 96, afebrile. GENERAL: The patient is alert and oriented. LUNGS: Diminished. CARDIOVASCULAR: Irregularly irregular rhythm. ABDOMEN: Soft, nontender. EXTREMITIES: No clubbing, cyanosis. Trace edema. NEUROLOGIC: Intact. The patient continues to be monitored carefully and make further evaluation on her heart failure as well as her atrial fibrillation with rapid ventricular response. Continue to monitor the patient to make further evaluation per those responses. She also may have a DICTATION ENDS HERE. CANDIDA GUZMAN MD DR: NIA/altagracia JOB#: [id number] / [id number]
[2019-01-16 22:04] VITALS: BP 114/81
[2019-01-17 05:48] VITALS: BP 102/65
[2019-01-17 06:57] LABS: BASO # 0.1 x10^3/uL (0.0-0.2); BASO % 1 % (0-3); EOS # 0.2 x10^3/uL (0.0-0.7); EOS % 4 % (0-3); HEMATOCRIT 41.4 % (36.0-47.0); HEMOGLOBIN 13.5 g/dL (12.0-15.5); LYMPH # 1.1 x10^3/uL (1.0-4.8); LYMPH % 19 % (24-48); MEAN CORPUSCULAR HEMOGLOBIN 27 pg (25-35); MEAN CORPUSCULAR HGB CONC 33 g/dL (31-37); MEAN CORPUSCULAR VOLUME 84 fL (79-100); MONO # 0.6 x10^3/uL (0.0-1.1); MONO % 9 % (0-9); NEUT # 4.1 x10^3uL (1.8-7.7); NEUT % 67 % (31-73); PLATELET COUNT 184 x10^3/uL (140-400); RED BLOOD COUNT 4.93 x10^6/uL (3.50-5.40); RED CELL DISTRIBUTION WIDTH 14.6 % (11.5-14.5); WHITE BLOOD COUNT 6.1 x10^3/uL (4.0-11.0)
[2019-01-17 07:05] LABS: CALCIUM 8.6 mg/dL (8.5-10.1); CREATININE 0.7 mg/dL (0.6-1.0); GFR 80.7; POTASSIUM 4.4 mmol/L (3.5-5.1)
[2019-01-17] MEDS: METOPROLOL SUCC 24HR ER 50 MG TAB.ER.24H. PO SCH (08:53)
[2019-01-17] MEDS: MULTIVITAMIN I-VITE TABLET. PO SCH (08:54)
[2019-01-17] MEDS: FUROSEMIDE 40 MG TABLET PO SCH (08:55)
[2019-01-17] MEDS: CETIRIZINE HCL 10 MG TABLET PO SCH (08:55)
[2019-01-17] MEDS: FLUTICASONE 50MCG/NASAL SPRAY 16GM BOTTLE. NS SCH (08:55)
[2019-01-17] MEDS: ASPIRIN 81 MG TAB.CHEW PO SCH (08:55)
[2019-01-17] MEDS ORDERED: FURO40TA4 PO (10:15)
[2019-01-17] MEDS ORDERED: METO50TA29 PO (10:15)
[2019-01-17] MEDS ORDERED: FLUT16SP21 NS (10:15)
[2019-01-17] MEDS ORDERED: SODI14.1 NS (10:15)
[2019-01-17] MEDS ORDERED: DILT120C85 PO (10:15)
[2019-01-17] MEDS ORDERED: RIVA10TA PO (10:15)
[2019-01-17 10:29] VITALS: BP 115/69
--- NOTE | 2019-01-17 12:23 | NUR ---
Patient discharged home in stable condition via wheelchair with family. Respirations even and unlabored at time of discharge and patient denied any pain or discomfort. Patient and received discharge instructions about new medications, follow up appointments, and medication schedule. Reviewed the medication schedule several times and created a color coded schedule for easier comprehension. Patient verbalized understanding and willingness to comply with all instructions. Patient denied further questions at time of discharge.
--- NOTE | 2019-01-18 03:52 | DS ---
DATE OF DISCHARGE: 01/17/2019 HOSPITAL COURSE: A 78-year-old female came in initially through the office. The patient has been having generalized shortness of breath with exertion and dyspnea, was found to have atrial fibrillation with rapid ventricular response rate to 140-150. The patient also has apparently some sleep apnea and had sinus congestion as well. The patient was brought in, placed on a Cardizem drip as well as some boluses of digitalis and brought her rate down as well. The patient made reasonably good progress during the rest of her hospitalization and adjusting her meds consistently with the appropriate therapy. Dr. Levy saw the patient and made further evaluation on her as indicated. The patient was also having some low potassium and that was corrected in the usual fashion. Her labs were basically unremarkable. Her hemoglobin remained basically stable 13 and 41. Her chemistries outside of the low potassium was brought into range and she had [id number] protein malnutrition. Chest x-rays demonstrated cardiomegaly, hiatal hernia and some mild congestive heart failure. The patient in turn was diuresed. Her BNP was 4000. IMPRESSION: Atrial fibrillation with rapid ventricular response, acute on top of chronic congestive heart failure, [id number] protein malnutrition, hypokalemia. See MRAD. Decreased activity and make further evaluation as an outpatient with her routine chart clerk. CANDIDA GUZMAN MD DR: NIA/altagracia JOB#: [id number] / [id number]
== END 2019-01-17 10:45 | disposition home or self-care (01) | DRG 291 ==
LOC: ER 10:19 → ICU 12:40 → ER 13:36 → 1 SOUTH 01-15 14:23
PROVIDERS: ADMIT Family Medicine; ATTEND Family Medicine
DX: I50.33 Acute on chronic diastolic (congestive) heart failure (principal); E43 Unspecified severe protein-calorie malnutrition; I48.91 Unspecified atrial fibrillation; K44.9 Diaphragmatic hernia without obstruction or gangrene; E87.6 Hypokalemia; J45.909 Unspecified asthma, uncomplicated; E03.9 Hypothyroidism, unspecified; E78.01 Familial hypercholesterolemia; G47.30 Sleep apnea, unspecified; I27.20 Pulmonary hypertension, unspecified; I34.0 Nonrheumatic mitral (valve) insufficiency; K72.90 Hepatic failure, unspecified without coma; Z90.710 Acquired absence of both cervix and uterus; Z80.3 Family history of malignant neoplasm of breast
CPT/HCPCS: 36415; 71045; 71046; 80048; 80053; 83735; 83880; 84145; 84484; 85025; 87641; 93005; 93306; 96374; 96375; J1160; J1940; J3490; 97110; 97116; 97530; 99285-25